=== PATIENT | female | born 1955 | race Caucasian/White ===

== ENCOUNTER 2017-07-25 19:35 | Observation (INO) | payer OTHER ==
[~2017-07-25] VITALS: Ht 172.7 cm; Wt 68.0 kg
[2017-07-25] VITALS (9 sets, daily range): BP systolic 117–157; BP diastolic 69–78; PULSE 68–74; RESP 15–20; TEMP 98.2–98.4; O2SAT 94–98
[2017-07-25] MEDS ORDERED: SODIUM CHLORIDE 0.9% FLUSH 10 ML FLUSH IVF PRN (20:45)
[2017-07-25 20:52] LABS: AUTOMATED NEUTROPHIL # 5.5 TH/MM3 (1.8-7.7); BASOPHIL # 0.1 TH/MM3 (0-0.2); BASOPHIL % 1.1 % (0.0-2.0); EOSINOPHIL # 0.2 TH/MM3 (0-0.4); EOSINOPHIL % 2.5 % (0.0-4.0); HEMATOCRIT 41.7 % (35.0-46.0); HEMO FLAGS DIFF FINAL; LYMPH % 27.6 % (9.0-44.0); LYMPHOCYTE # 2.5 TH/MM3 (1.0-4.8); MEAN CORPUSCULAR HEMOGLOBIN 31.9 PG (27.0-34.0); MEAN CORPUSCULAR HGB CONC 34.3 % (32.0-36.0); MONO % 8.1 % (0.0-8.0); NEUT % 60.7 % (16.0-70.0); PLATELET COUNT 258 TH/MM3 (150-450); RED BLOOD COUNT 4.49 MIL/MM3 (4.00-5.30); RED CELL DISTRIBUTION WIDTH 13.4 % (11.6-17.2); WHITE BLOOD COUNT 9.1 TH/MM3 (4.0-11.0)
--- NOTE | 2017-07-25 21:06 | PD ---
HPI Chief Complaint: Chest Pain Time Seen by Provider: 20:25 Travel History International Travel<30 days: No Contact w/Intl Traveler<30days: No Traveled to known affect area: No History of Present Illness HPI 61-year-old female that presents to the ED for evaluation of chest pain. Patient states that she's had chest pain with exertion for the past week. Patient has a history of COPD and smoking. She does have a history of abnormal EKGs per patient. 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 She's never had a stress test. She states that she' s never had the chest pain before. Per patient she was seen in urgent care today to get evaluated for this chest pain and shortness of breath and she had a breathing treatment as well as given aspirin and nitroglycerin which did relieve some of the discomfort and shortness of breath was told to come here. Patient came here by ambulance. She denies any abdominal pain. No nausea or vomiting. No diarrhea or bowel movement issues. She has not seen anybody for this. Other medical issues. Per patient the pain is 6 out of 10 and comes and goes more with exertion. 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 PFSH Past Medical History COPD: Yes Respiratory: Yes (COPD) Tetanus Vaccination: < 5 Years ?: Not Menopausal: Yes : 1 Tubal Ligation: Yes Social History Alcohol Use: Yes (2 beers a week) Tobacco Use: Yes (1 PPPD FOR 30 YEARS) Substance Use: No Allergies-Medications (Allergen,Severity, Reaction): Coded Allergies: No Known Allergies (Verified , 04/17/16) Reported Meds & Prescriptions Reported Meds & Active Scripts Active No Active Prescriptions or Reported Medications Review of Systems Except as stated in HPI: all other systems reviewed are Neg Physical Exam Narrative GENERAL: SKIN: Warm and dry. HEAD: Atraumatic. Normocephalic. EYES: Pupils equal and round. No scleral icterus. No injection or drainage. ENT: No nasal bleeding or discharge. Mucous membranes pink and moist. Tongue is midline. No uvula deviation. NECK: Trachea midline. No JVD. CARDIOVASCULAR: Regular rate and rhythm. No murmurs, S3, S4. RESPIRATORY: No accessory muscle use. Clear to auscultation. Breath sounds equal bilaterally. GASTROINTESTINAL: Abdomen soft, non-tender, nondistended. Hepatic and splenic margins not palpable. MUSCULOSKELETAL: Extremities without clubbing, cyanosis, or edema. No obvious deformities. Full range of motion of the upper and lower extremities bilaterally. 2+ pulses bilaterally. NEUROLOGICAL: Awake and alert. No obvious cranial nerve deficits. Motor grossly within normal limits. Five out of 5 muscle strength in the arms and legs. Normal speech. PSYCHIATRIC: Appropriate mood and affect; insight and judgment normal. Data Data Last Documented VS Vital Signs Date Time Temp Pulse Resp B/P (MAP) Pulse Ox O2 Delivery O2 Flow Rate FiO2 07/25/17 21:36 71 16 117/74 (88) 98 Room Air 07/25/17 19:41 98.4 Orders Orders Electrocardiogram (07/25/17 20:32) Ckmb (Isoenzyme) Profile (07/25/17 20:32) Complete Blood Count With Diff (07/25/17 20:32) Comprehensive Metabolic Panel (07/25/17 20:32) Magnesium (Mg) (07/25/17 20:32) Prothrombin Time / Inr (Pt) (07/25/17 20:32) Act Partial Throm Time (Ptt) (07/25/17 20:32) Troponin I (07/25/17 20:32) Lipase (07/25/17 20:32) Chest, Single Ap (07/25/17 20:32) Ecg Monitoring (07/25/17 20:32) Bilateral Bp Monitoring (07/25/17 20:32) Iv Access Insert/Monitor (07/25/17 20:32) Oximetry (07/25/17 20:32) Oxygen Administration (07/25/17 20:32) Sodium Chloride 0.9% Flush (Ns Flush) (07/25/17 20:45) D-Dimer (07/25/17 20:32) Admit Order (Ed Use Only) (07/25/17 21:35) Labs Laboratory Tests Test 07/25/17 20:35 White Blood Count 9.1 TH/MM3 Red Blood Count 4.49 MIL/MM3 Hemoglobin 14.3 GM/DL Hematocrit 41.7 % Mean Corpuscular Volume 93.0 FL Mean Corpuscular Hemoglobin 31.9 PG Mean Corpuscular Hemoglobin Concent 34.3 % Red Cell Distribution Width 13.4 % Platelet Count 258 TH/MM3 Mean Platelet Volume 7.6 FL Neutrophils (%) (Auto) 60.7 % Lymphocytes (%) (Auto) 27.6 % Monocytes (%) (Auto) 8.1 % Eosinophils (%) (Auto) 2.5 % Basophils (%) (Auto) 1.1 % Neutrophils # (Auto) 5.5 TH/MM3 Lymphocytes # (Auto) 2.5 TH/MM3 Monocytes # (Auto) 0.7 TH/MM3 Eosinophils # (Auto) 0.2 TH/MM3 Basophils # (Auto) 0.1 TH/MM3 CBC Comment DIFF FINAL Differential Comment Prothrombin Time 10.7 SEC Prothromb Time International Ratio 1.0 RATIO Activated Partial Thromboplast Time 27.1 SEC D-Dimer Quantitative (PE/DVT) 0.37 MG/L FEU Blood Urea Nitrogen 11 MG/DL Creatinine 0.63 MG/DL Random Glucose 93 MG/DL Total Protein 6.9 GM/DL Albumin 3.7 GM/DL Calcium Level 8.8 MG/DL Magnesium Level 2.3 MG/DL Alkaline Phosphatase 89 U/L Aspartate Amino Transf (AST/SGOT) 16 U/L Alanine Aminotransferase (ALT/SGPT) 30 U/L Total Bilirubin 0.5 MG/DL Sodium Level 141 MEQ/L Potassium Level 3.7 MEQ/L Chloride Level 108 MEQ/L Carbon Dioxide Level 27.9 MEQ/L Anion Gap 5 MEQ/L Estimat Glomerular Filtration Rate 96 ML/MIN Total Creatine Kinase 70 U/L Troponin I LESS THAN 0.02 NG/ML Lipase 132 U/L MDM Medical Decision Making Medical Screen Exam Complete: Yes Emergency Medical Condition: Yes Medical Record Reviewed: Yes Interpretation(s) EKG shows sinus rhythm with no sign of acute ischemia or arrhythmia. Read by me and attending. Differential Diagnosis Chest pain versus ACS versus a typical chest pain versus angina versus COPD exacerbation Narrative Course 61-year-old female that presents to the ED for evaluation of chest pain. Patient was properly examined and was found to have signs and symptoms consistent with appears to be chest pain. Concerning for ACS. Labs and imaging were ordered. Labs and imaging showed no sign of acute disease. At this time I do recommend admission for chest pain center rule out. Patient agrees with this. Patient was admitted to the chest pain center. Diagnosis Primary Impression: Chest pain in adult Admitting Information Admitting Physician Requests: Observation Scripts No Active Prescriptions or Reported Meds Tyrone Baum Jul 25, 2017 21:06
[2017-07-25 21:08] LABS: ALT (GPT) 30 U/L (10-53); ANION GAP 5 MEQ/L (5-15); AST (GOT) 16 U/L (15-37); BICARBONATE 27.9 MEQ/L (21.0-32.0); BLOOD UREA NITROGEN 11 MG/DL (7-18); CHLORIDE 108 MEQ/L (98-107); GLOMERULAR FILTRATION RATE 96 ML/MIN (>89); MAGNESIUM 2.3 MG/DL (1.5-2.5); POTASSIUM 3.7 MEQ/L (3.5-5.1); SODIUM (NA) 141 MEQ/L (136-145)
[2017-07-25 21:12] LABS: ALKALINE PHOSPHATASE 89 U/L (45-117); TOTAL BILIRUBIN ADULT 0.5 MG/DL (0.2-1.0)
[2017-07-25 21:16] LABS: APTT (PATIENT) 27.1 SEC (24.3-30.1); PROTHROMBIN TIME - PATIENT 10.7 SEC (9.8-11.6)
[2017-07-25 21:26] LABS: CREATINE KINASE 70 U/L (26-192)
[2017-07-25] MEDS ORDERED: SODIUM CHLORIDE 0.9% FLUSH 10 ML FLUSH IV FLUSH PRN (21:45)
--- NOTE | 2017-07-25 21:53 | RADRPT ---
EXAM DATE/TIME: 07/25/2017 21:23 [facility] COMPARISON: No previous studies available for comparison. INDICATIONS : Chest and back pain. MEDICAL HISTORY : Chronic obstructive pulmonary disease. SURGICAL HISTORY : None. ENCOUNTER: Initial ACUITY: 3 days PAIN SCORE: 5/10 LOCATION: Bilateral chest FINDINGS: A single view of the chest demonstrates the lungs to be symmetrically aerated without evidence of mas s, infiltrate or effusion. The cardiomediastinal contours are unremarkable. Osseous structures are intact. CONCLUSION: No acute disease. Price Ingram MD on July 25, 2017 at 21:50 Board Certified Radiologist. This report was verified electronically.
[2017-07-26] VITALS (7 sets, daily range): BP systolic 112–120; BP diastolic 55–75; PULSE 61–73; RESP 18; TEMP 98.1–98.6; O2SAT 92–96
[2017-07-26 01:11] LABS: CREATINE KINASE 59 U/L (26-192)
[2017-07-26 06:19] LABS: CREATINE KINASE 55 U/L (26-192)
--- NOTE | 2017-07-26 07:31 | EKG ---
Date Performed: 07/26/2017 Time Performed: 05:00:20 PTAGE: 61 years EKG: Sinus rhythm POSSIBLE LEFT ATRIAL ENLARGEMENT MARKED LEFT AXIS DEVIATION INCOMPLETE RIGHT BUNDLE BRANCH BLOCK SEP JENNIFER MYOCARDIAL INFARCTION ABNORMAL ECG Since PREVIOUS TRACING , no significant change noted PREVIOUS TRACIN07/25/2017 19.49 DOCTOR: Chelsea Stanton Interpretating Date/Time 07/26/2017 07:30:17
--- NOTE | 2017-07-26 07:31 | EKG ---
Date Performed: 07/25/2017 Time Performed: 23:57:24 PTAGE: 61 years EKG: Sinus rhythm POSSIBLE LEFT ATRIAL ENLARGEMENT INDETERMINATE AXIS INCOMPLETE RIGHT BUNDLE BRANCH BLOCK BORDERLINE ECG Since previous tracing, no significant change noted NO PREVIOUS TRACING DOCTOR: Chelsea Stanton Interpretating Date/Time 07/26/2017 07:31:04
--- NOTE | 2017-07-26 07:32 | EKG ---
Date Performed: 07/25/2017 Time Performed: 19:49:13 PTAGE: 61 years EKG: Sinus rhythm POSSIBLE LEFT ATRIAL ENLARGEMENT INCOMPLETE RIGHT BUNDLE BRANCH BLOCK SEPTAL MYOCARDIAL INFARCTION A BNORMAL ECG NO PREVIOUS TRACING DOCTOR: Chelsea Stanton Interpretating Date/Time 07/26/2017 07:31:11
[2017-07-26] MEDS ORDERED: RESP: ALBUTEROL 2.5 MG/IPRATROPIUM 0.5 MG NEB (SCH) INH ONE (08:45)
[2017-07-26] MEDS ORDERED: RESP: ALBUTEROL 2.5 MG/IPRATROPIUM 0.5 MG NEB (PRN) INH (08:45)
--- NOTE | 2017-07-26 08:55 | HHI.HP ---
HPI Primary Care Physician No Primary Care Physician Chief Complaint Chest pain History of Present Illness This is a 61-year-old female that presents to the ED with a complaint of chest discomfort intermittently for the past week. She found nothing in particular bring on the discomfort. When asked how long it last patient replies I don't know. She has been short of breath with it at times. She is found that it is worsened with certain movements or when she takes in a deep breath. She denies having a cough prior to getting a breathing treatment. She states that she went to an urgent care center prior to coming to the ED and was given a breathing treatment which did help with her symptoms however she has started to cough now. For the most part is a nonproductive cough. Patient states she has history of COPD and smokes about one pack of cigarettes daily. Denies history of heart disease. Review of Systems General: Patient denies fevers, chills recent, and recent travel HEENT: Patient denies headache, sore throat, difficulty swallowing. Cardiovascular: Has the chest discomfort as mentioned above. Denies sensation of heart beating rapidly or irregularly. No syncope. Denies diaphoresis. Respiratory: She has been short of breath. Denies inspirational chest discomfort. Denies coughing wheezing or hemoptysis. However she states that she started have a little bit of a cough after getting a breathing treatment at an urgent care prior to coming to this facility. GI: Patient denies nausea, vomiting, diarrhea, abdominal pain, bloody stools. Musculoskeletal: Patient denies joint pain or edema. Denies calf pain or edema. Neurovascular: Patient denies numbness, tingling, weakness in extremities. Denies headache. Endocrine: Denies polyuria and polydipsia. Hematologic: Denies easy bruising. Skin: Denies rash or itching. Past Family Social History Allergies: Coded Allergies: No Known Allergies (Verified , 04/17/16) Past Medical History Hyperlipidemia however she states takes no medication for it. States it was never prescribed. Tobacco abuse. Denies hypertension, diabetes, and known CAD. Past Surgical History Noncontributory. Reported Medications Reported Meds & Active Scripts Active No Active Prescriptions or Reported Medications Active Ordered Medications Current Medications Medications (Trade) Dose Ordered Sig/Benson Route Start Time Stop Time Status Last Admin (NS Flush) 2 ml UNSCH PRN IVF 07/25/17 20:45 (NS Flush) 2 ml UNSCH PRN IV FLUSH 07/25/17 21:45 (NS Flush) 2 ml BID IV FLUSH 07/26/17 09:00 (Duoneb Neb) 1 ampule Q4HR NEB PRN INH 07/26/17 08:45 (Duoneb Neb) 1 ampule STAT ONCE INH 07/26/17 08:45 07/26/17 08:46 UNV Family History States that her mother had a myocardial infarction. Social History Patient smokes one pack of cigarettes daily. She has occasional beer. Denies illicit drugs. Physical Exam Vital Signs Vital Signs Date Time Temp Pulse Resp B/P (MAP) Pulse Ox O2 Delivery O2 Flow Rate FiO2 07/26/17 08:22 96 21 07/26/17 07:55 98.1 61 18 112/70 (84) 95 07/26/17 07:12 65 07/26/17 04:02 72 07/26/17 03:42 98.4 73 18 112/55 (74) 92 07/26/17 01:13 98.6 62 18 120/75 (90) 96 07/26/17 00:02 72 07/25/17 23:01 98.2 68 18 128/77 (94) 96 07/25/17 22:30 66 18 131/72 (91) 98 07/25/17 21:46 98 21 07/25/17 21:36 71 16 117/74 (88) 98 Room Air 07/25/17 21:00 72 15 122/69 (86) 98 Room Air 07/25/17 20:45 98 Room Air 07/25/17 20:35 68 15 141/78 (99) 98 Room Air 07/25/17 20:25 72 16 145/72 (96) 98 Room Air 07/25/17 19:41 98.4 74 20 157/76 (103) 94 07/25/17 19:38 157/76 (103) Physical Exam GENERAL: This is a well-nourished, well-developed patient, in no apparent distress. Patient speaks in clear complete sentences. Patient is pleasant. HEENT: Head is atraumatic and normocephalic. Neck is supple without lymphadenopathy and trachea is midline. No JVD or carotid bruits. CARDIOVASCULAR: Regular rate and rhythm without murmurs, gallops, or rubs. RESPIRATORY: Clear to auscultation. Breath sounds equal bilaterally. No wheezes , rales, or rhonchi. However she began to wheeze after having a Aman protocol stress test. Chest wall is nontender. No use of accessory muscles. GASTROINTESTINAL: Abdomen is nontender, nondistended. Abdomen soft. No obvious pulsatile mass or bruit. No CVA tenderness. Strong femoral pulses bilaterally. Normal bowel sounds in all quadrants. MUSCULOSKELETAL: Patient is moving upper and lower extremities freely. No calf tenderness or edema, no Homans sign. Strong pulses in upper and lower extremities. NEUROLOGICAL: Patient is alert and oriented. Cranial nerves 2-12 are grossly intact. No focal deficits and speech is clear. SKIN: No rash and turgor is normal. Laboratory Laboratory Tests Test 07/25/17 20:35 07/26/17 00:15 07/26/17 05:15 White Blood Count 9.1 Red Blood Count 4.49 Hemoglobin 14.3 Hematocrit 41.7 Mean Corpuscular Volume 93.0 Mean Corpuscular Hemoglobin 31.9 Mean Corpuscular Hemoglobin Concent 34.3 Red Cell Distribution Width 13.4 Platelet Count 258 Mean Platelet Volume 7.6 Neutrophils (%) (Auto) 60.7 Lymphocytes (%) (Auto) 27.6 Monocytes (%) (Auto) 8.1 Eosinophils (%) (Auto) 2.5 Basophils (%) (Auto) 1.1 Neutrophils # (Auto) 5.5 Lymphocytes # (Auto) 2.5 Monocytes # (Auto) 0.7 Eosinophils # (Auto) 0.2 Basophils # (Auto) 0.1 CBC Comment DIFF FINAL Differential Comment Prothrombin Time 10.7 Prothromb Time International Ratio 1.0 Activated Partial Thromboplast Time 27.1 D-Dimer Quantitative (PE/DVT) 0.37 Blood Urea Nitrogen 11 Creatinine 0.63 Random Glucose 93 Total Protein 6.9 Albumin 3.7 Calcium Level 8.8 Magnesium Level 2.3 Alkaline Phosphatase 89 Aspartate Amino Transf (AST/SGOT) 16 Alanine Aminotransferase (ALT/SGPT) 30 Total Bilirubin 0.5 Sodium Level 141 Potassium Level 3.7 Chloride Level 108 Carbon Dioxide Level 27.9 Anion Gap 5 Estimat Glomerular Filtration Rate 96 Total Creatine Kinase 70 59 55 Troponin I LESS THAN 0.02 LESS THAN 0.02 LESS THAN 0.02 Lipase 132 Result Diagram: 07/25/17203407/25/172034 Imaging Last 48 hours Impressions Chest X-Ray 07/25/172031 Signed Impressions: Service Date/Time: Tuesday, July 25, 2017 21:23 - CONCLUSION: No acute disease. Price Ingram MD Course EKGs have sinus rhythm without significant ST segment depressions or elevations. Caprini VTE Risk Assessment Caprini VTE Risk Assessment: No/Low Risk (score <= 1) Caprini Risk Assessment Model Point Value = 1 Point Value = 2 Point Value = 3 Point Value = 5 Age 41-60 Minor surgery BMI > 25 kg/m2 Swollen legs Varicose veins or History of unexplained or recurrent spontaneous Oral contraceptives or hormone replacement Sepsis (< 1 month) Serious lung disease, including pneumonia (< 1 month) Abnormal pulmonary function Acute myocardial infarction Congestive heart failure (< 1 month) History of inflammatory bowel disease Medical patient at bed rest Age 61-74 Arthroscopic surgery Major open surgery (> 45 min) Laparoscopic surgery (> 45 min) Malignancy Confined to bed (> 72 hours) Immobilizing plaster cast Central venous access Age >= 75 History of VTE Family history of VTE Factor V Leiden Prothrombin [id number] Lupus anticoagulant Anticardiolipin antibodies Elevated serum homocysteine Heparin-induced thrombocytopenia Other congenital or acquired thrombophilia Stroke (< 1 month) Elective arthroplasty Hip, pelvis, or leg fracture Acute spinal cord injury (< 1 month) Prophylaxis Regimen Total Risk Factor Score Risk Level Prophylaxis Regimen 0-1 Low Early ambulation 2 Moderate Order ONE of the following: *Sequential Compression Device (SCD) *Heparin 5000 units SQ BID 3-4 Higher Order ONE of the following medications: *Heparin 5000 units SQ TID *Enoxaparin/Lovenox 40 mg SQ daily (WT < 150 kg, CrCl > 30 mL/min) *Enoxaparin/Lovenox 30 mg SQ daily (WT < 150 kg, CrCl > 10-29 mL/min) *Enoxaparin/Lovenox 30 mg SQ BID (WT < 150 kg, CrCl > 30 mL/min) AND/OR *Sequential Compression Device (SCD) 5 or more Highest Order ONE of the following medications: *Heparin 5000 units SQ TID (Preferred with Epidurals) *Enoxaparin/Lovenox 40 mg SQ daily (WT < 150 kg, CrCl > 30 mL/min) *Enoxaparin/Lovenox 30 mg SQ daily (WT < 150 kg, CrCl > 10-29 mL/min) *Enoxaparin/Lovenox 30 mg SQ BID (WT < 150 kg, CrCl > 30 mL/min) AND *Sequential Compression Device (SCD) Assessment and Plan Assessment and Plan * Chest pain: Patient has had serial cardiac enzymes and EKGs for ruling out purposes. She was seen by Dr. Stanton of cardiology in the chest pain center. Patient attempted Aman protocol ETT but stopped prior to reaching goal heart rate secondary to shortness of breath. There were no chest discomforts. No significant ST changes. Patient will now have a Lexiscan. She 'll be discharged home if Lexiscan was nonischemic. * COPD: Patient needs to quit smoking. She will have DuoNeb's when necessary. * Tobacco abuse: Patient has been counseled on importance of smoking cessation. * Hyperlipidemia: Patient states she was told that she has elevated lipid panel but it was marginally elevated and never prescribed medication. She will need to have this followed with PCP. Patient is stable at this time. She is agreeable to this plan. Catrachito Lemus Jul 26, 2017 08:55
[2017-07-26] MEDS ORDERED: SODIUM CHLORIDE 0.9% FLUSH 10 ML FLUSH IV FLUSH SCH (09:00)
[2017-07-26] MEDS ORDERED: REGADENOSON INJ 0.4 MG/5 ML SYR ONE (11:36)
--- NOTE | 2017-07-26 13:19 | RADRPT ---
EXAM DATE/TIME: 07/26/2017 10:55 [facility] COMPARISON: No previous studies available for comparison. INDICATIONS : Chest pain for one week Angina. DOSE: 25.8 mCi Tc99m Myoview at stress. 8.2 mCi Tc99m Myoview at rest. 0.4 mg Lexiscan STRESS SYMPTOMS: Short of breath. EJECTION FRACTION: 62% MEDICAL HISTORY : Chronic obstructive pulmonary disease. Smoking. SURGICAL HISTORY : Tubal ligation. ENCOUNTER: Initial ACUITY: 1 week PAIN SCALE: 6/10 LOCATION: Bilateral chest TECHNIQUE: The patient underwent pharmacologic stress with infusion of prescribed dose. Continuous ECG tracing was monitored during stress. Gated SPECT imaging was performed after stress and conventional SPECT i maging was performed at rest. The examination was performed on a SPECT/CT scanner, both attenuation and non-corrected datasets were reviewed. FINDINGS: DISTRIBUTION: The maximum perfused segment at stress is in the anterior wall. PERFUSION STUDY: The pattern of perfusion at stress is within normal limits. GATED STUDY: There is intact wall motion and thickening without hypokinetic or dyskinetic segments. CONCLUSION: Normal examination. RISK CATEGORY: Intermediate (1-3% Annual Mortality Rate) Lisandro Matt MD on July 26, 2017 at 13:15 Board Certified Radiologist. This report was verified electronically.
--- NOTE | 2017-07-26 13:32 | HHI.DCPOC ---
Discharge Care Plan Diagnosis: (1) Chest pain (2) COPD (chronic obstructive pulmonary disease) (3) Tobacco abuse (4) Hyperlipidemia Goals to Promote Your Health * To prevent worsening of your condition and complications * To maintain your health at the optimal level Directions to Meet Your Goals Take your medications as prescribed Follow your dietary instruction Follow activity as directed Keep your appointments as scheduled Take your immunizations and boosters as scheduled If your symptoms worsen call your PCP, if no PCP go to Urgent Care Center or Emergency Room Smoking is Dangerous to Your Health. Avoid second hand smoke Call the 24-hour hour crisis hotline for domestic abuse at Catrachito Lemus Jul 26, 2017 13:32
--- NOTE | 2017-07-26 22:24 | TR ---
Date Performed: 07/26/2017 Time Performed: 08:36:17 DOCTOR: Chelsea Stanton DRUG LIST: CLINICAL HISTORY: CHEST PAIN REASON FOR TEST: REASON FOR ENDING: OBSERVATION: CONCLUSION: ATTEMPTED [place] PROTOCOL. STOPPED PRIOR TO REACHING GOAL HR SECONDARY TO SOB. NO CP . WILL GET LEXISCAN.Maximum UU=105 % Max HR Achieved=73.0% Maximum TL=557/68 Total Exercise Time=2:31 COMMENTS:
--- NOTE | 2017-07-26 22:27 | TR ---
Date Performed: 07/26/2017 Time Performed: 11:40:25 DOCTOR: Chelsea Stanton DRUG LIST: CLINICAL HISTORY: REASON FOR TEST: REASON FOR ENDING: OBSERVATION: CONCLUSION: Lexiscan stress test was performed under standard four minute protocol. Radionuclid e was injected one minute prior to ending the test. No electrocardiographic abormalities were present to suggest ischemia. Nuclear imaging and interpretation are pending. COMMENTS:
== END 2017-07-26 14:41 | disposition home or self-care (01) ==
LOC: NEPE 19:35 → NEDA 21:38 → NEPFCDU 22:47
PROVIDERS: ADMIT Internal Medicine Cardiovascular Disease; ATTEND Internal Medicine Cardiovascular Disease
DX: R07.9 Chest pain, unspecified (principal); J44.9 Chronic obstructive pulmonary disease, unspecified; E78.5 Hyperlipidemia, unspecified; R94.31 Abnormal electrocardiogram [ECG] [EKG]; F17.210 Nicotine dependence, cigarettes, uncomplicated
CPT/HCPCS: 71010; 78452; 80053; 82550; 83690; 83735; 84484; 85025; 85379; 85610; 85730; 93005; 93017; 94664; 99285; A9502; G0378; J2785